=== PATIENT | female | born 1955 | race African-American/Black ===

== ENCOUNTER 2018-02-14 12:59 | Outpatient (CLI) | payer BC | END 2018-02-14 13:00 | disposition home or self-care (01) | LOC: BICMAMMO 12:59 | PROVIDERS: ATTEND Family Medicine | DX: Z12.31 Encounter for screening mammogram for malignant neoplasm of breast (principal); Z01.419 Encounter for gynecological examination (general) (routine) without abnormal findings; M81.0 Age-related osteoporosis without current pathological fracture; M85.88 Other specified disorders of bone density and structure, other site; Z78.0 Asymptomatic menopausal state; Z80.3 Family history of malignant neoplasm of breast | CPT/HCPCS: 77063; 77067; 77080 ==

== ENCOUNTER 2018-10-25 08:59 | Outpatient (CLI) | payer MEDICARE ==
--- NOTE | 2018-10-25 11:37 | CT ---
CT ABDOMEN AND PELVIS WITH AND WITHOUT IV CONTRAST: Date: 10-25-18 Provided Clinical History: Abdominal and pelvic swelling mass and lump. FINDINGS: The visualized lung bases are free of significant opacity. There is a calcified nodule involving the right lower lung adjacent to the IVC. There are multiple small, subcentimeter foci of diminished attenuation involving the periphery of the liver to small to definitively characterize. The spleen, pancreas, and adrenal glands appear unremar kable. The kidneys demonstrate no evidence for hydronephrosis or mass. There is a large complex cystic and solid mass present within the central aspects of the pelvis. This measures at least 15.7 x 8.8 cm in greatest transverse dimensions and at least 9.1 cm in craniocauda l dimension. This displaces and is inseparable from portions of the sigmoid colon and pelvic small [place]. There is free intraperitoneal fluid present within the abdomen and pelvis. There is fluid extend ing into the left inguinal canal compatible with fluid containing inguinal hernia. There is a linear density associated with small bowel in the left lateral midabdomen that may reflect post-operative ch karol or potentially ingested material. There is no bowel dilatation or lymph node enlargement apparent. The osseous structures demonstrate no concerning osteoblastic or osteolytic lesions. IMPRESSION: 1. Large cystic and solid pelvic mass likely reflecting an ovarian carcinoma. Free intraperitoneal fl uid suggests associated peritoneal carcinomatosis. 2. Multiple subcentimeter hepatic hypodensities, too small to definitively characterize. Given their primarily peripheral, subcapsular location, metastases cannot be excluded. POS: [facility]
[2018-10-25] MEDS ORDERED: ISOVUE-370 76%-LOCM 1 ML ONE (16:36)
== END 2018-10-25 09:00 | disposition home or self-care (01) ==
LOC: BICCT 08:59
PROVIDERS: ATTEND Student in an Organized Health Care Education/Training Program
DX: R19.00 Intra-abdominal and pelvic swelling, mass and lump, unspecified site (principal); K76.89 Other specified diseases of liver
CPT/HCPCS: 74178; 82565; Q9966

== ENCOUNTER 2019-02-24 13:07 | Outpatient (CLI) | payer MEDICARE ==
--- NOTE | 2019-02-24 14:14 | MMO ---
Bilateral MAMMO Bilat Screen [facility]. CLINICAL HISTORY: Patient is 63 years old and is seen for screening. The patient has the following family history of breast cancer: sister. The patient has no personal history of cancer. VIEWS: The views performed were: bilateral craniocaudal with tomosynthesis and bilateral mediolateral oblique with tomosynthesis. FILMS COMPARED: The present examination has been compared to prior imaging studies performed at [facility] on 01/27/2014, and at [facility] on 07/11/2010, 09/22/2016 and 02/14/2018. MAMMOGRAM FINDINGS: There are scattered fibroglandular densities. There are no suspicious masses, suspicious calcifications, or new areas of architectural distortion. IMPRESSION: THERE IS NO MAMMOGRAPHIC EVIDENCE OF MALIGNANCY. A ROUTINE FOLLOW-UP MAMMOGRAM IN 1 YEAR IS RECOMMENDED. THE RESULTS OF THIS EXAM WERE SENT TO THE PATIENT. ACR BI-RADS Category 1 - Negative MAMMOGRAPHY NOTE: 1. A negative mammogram report should not delay a biopsy if a dominant of clinically suspicious mass is present. 2. Approximately 10% to 15% of breast cancers are not detected by mammography. 3. Adenosis and dense breasts may obscure an underlying neoplasm.
== END 2019-02-24 13:08 | disposition home or self-care (01) ==
LOC: BICMAMMO 13:07
PROVIDERS: ATTEND Family Medicine
DX: Z12.31 Encounter for screening mammogram for malignant neoplasm of breast (principal); Z80.3 Family history of malignant neoplasm of breast
CPT/HCPCS: 77063; 77067

== ENCOUNTER 2020-12-10 13:39 | Outpatient (CLI) | payer MEDICARE | END 2020-12-10 13:40 | disposition home or self-care (01) | LOC: BICMAMMO 13:39 | PROVIDERS: ATTEND Family Medicine | DX: Z12.31 Encounter for screening mammogram for malignant neoplasm of breast (principal); M81.0 Age-related osteoporosis without current pathological fracture; M85.89 Other specified disorders of bone density and structure, multiple sites; Z80.3 Family history of malignant neoplasm of breast | CPT/HCPCS: 77063; 77067; 77080 ==